=== PATIENT | female | born 1975 | race Two or more races ===

== ENCOUNTER 2017-02-04 17:03 | Inpatient (IN) | payer MEDICAID ==
[~2017-02-04] VITALS: Ht 154.9 cm; Wt 63.5 kg
[2017-02-04 18:49] LABS: UA SPECIFIC GRAVITY 1.025 (1.005-1.035); microscopic required? YES; urine erythrocyte 3+ (NEGATIVE)
[2017-02-04 18:51] LABS: BASOPHIL % 0.5 % (0-2)
[2017-02-04 18:54] LABS: CALCIUM 8.5 mg/dL (8.5-10.1); CARBON DIOXIDE 27.9 mmol/L (21-32); CHLORIDE SERUM 102 mmol/L (98-107); CREATININE SERUM 0.7 mg/dL (0.6-1.0); GFR1 > 60 mL/min; GLUCOSE SERUM 89 mg/dL (74-106); POTASSIUM SERUM 3.9 mmol/L (3.5-5.1); SODIUM SERUM 139 mmol/L (136-145)
[2017-02-04 18:58] LABS: ALKALINE PHOSPHATASE 64 U/L (46-116); ALT/SGPT 17 U/L (14-59); AMYLASE 69 U/L (25-115); AST/SGOT 13 U/L (15-37); BILIRUBIN TOTAL 0.13 mg/dL (0.20-1.00); LIPASE 288 IU/L (73-393); TOTAL PROTEIN, SERUM 7.1 g/dL (6.4-8.2)
[2017-02-04 19:01] LABS: ALBUMIN 3.3 g/dL (3.4-5.0)
[2017-02-04 19:20] LABS: PLATELET COUNT 433 x10^3mcL (130-400)
[2017-02-04 19:49] LABS: rbc morphology (normal/abnorm) ABNORMAL (NORMAL)
[2017-02-04 21:01] LABS: AMPHETAMINE QUAL UR NONE DETECTED (NEG <=1000)
[2017-02-04 21:10] LABS: T3 TOTAL 1.21 ng/mL
[2017-02-04 21:15] LABS: FREE T4 1.04 ng/dL (0.76-1.46); FREE THYROXINE INDEX 2.9 ug/dL (1.4-4.5); T4(THYROXINE) 8.3 ug/dL (4.7-13.3)
[2017-02-04 21:20] LABS: CHOLESTEROL/HDL RATIO 3.8; PHOSPHOROUS 4.2 mg/dL (2.5-4.9)
[2017-02-04 21:23] VITALS: BP 143/82
[2017-02-04 21:31] VITALS: BP 143/82
[2017-02-05 02:49] LABS: IRON 11 ug/dL (50-170); TOTAL IRON BINDING CAPACITY 563 ug/dL (250-450)
[2017-02-05 05:46] VITALS: BP 96/56
[2017-02-05 06:08] LABS: CALCIUM 8.6 mg/dL (8.5-10.1); CARBON DIOXIDE 28.4 mmol/L (21-32); CHLORIDE SERUM 102 mmol/L (98-107); CREATININE SERUM 0.6 mg/dL (0.6-1.0); GFR1 > 60 mL/min; GLUCOSE SERUM 103 mg/dL (74-106); SODIUM SERUM 135 mmol/L (136-145)
[2017-02-05 07:03] LABS: BASOPHIL % 0.7 % (0-2); RED BLOOD CELLS 3.47 M/mm3 (4.10-5.10)
[2017-02-05 07:19] LABS: PLATELET COUNT 411 x10^3mcL (130-400); RED CELL DISTRIBUTION WIDTH 17.7 % (11.5-14.5)
[2017-02-05 07:24] LABS: rbc morphology (normal/abnorm) ABNORMAL (NORMAL)
[2017-02-05 09:43] VITALS: BP 128/74
[2017-02-05 13:22] VITALS: BP 109/66
[2017-02-06 06:11] VITALS: BP 109/68
[2017-02-06 13:21] LABS: BASOPHIL % 0.4 % (0-2)
[2017-02-06 13:25] LABS: PLATELET COUNT 438 x10^3mcL (130-400)
[2017-02-06 13:26] LABS: CALCIUM 8.6 mg/dL (8.5-10.1); CARBON DIOXIDE 29.5 mmol/L (21-32); CHLORIDE SERUM 105 mmol/L (98-107); CREATININE SERUM 0.7 mg/dL (0.6-1.0); GFR1 > 60 mL/min; GLUCOSE SERUM 128 mg/dL (74-106); POTASSIUM SERUM 3.7 mmol/L (3.5-5.1); SODIUM SERUM 141 mmol/L (136-145); rbc morphology (normal/abnorm) ABNORMAL (NORMAL)
[2017-02-06 14:02] VITALS: BP 107/66
[2017-02-06 17:21] VITALS: BP 108/70; BP 111/69
[2017-02-06] MEDS ORDERED: FER300 PO (17:25)
[2017-02-06] MEDS ORDERED: VITC PO (17:26)
[2017-02-06 17:29] VITALS: BP 111/69
== END 2017-02-06 18:46 | disposition home or self-care (01) | DRG 532 ==
LOC: ED 17:03 → DU 19:36
PROVIDERS: Emergency Medicine; Family Medicine; ADMIT Family Medicine
DX: N93.8 Other specified abnormal uterine and vaginal bleeding (principal); N17.0 Acute kidney failure with tubular necrosis; D62 Acute posthemorrhagic anemia; E44.1 Mild protein-calorie malnutrition; E78.5 Hyperlipidemia, unspecified; E87.6 Hypokalemia; E66.3 Overweight; Z68.26 Body mass index [BMI] 26.0-26.9, adult
CPT/HCPCS: 83880; 84439; J2916; J3490; J7030; Q0092

== ENCOUNTER 2017-06-06 08:45 | Emergency (ER) | payer MEDICAID ==
[~2017-06-06 08:45] MED LIST: FER300 PO; VITC PO
[2017-06-06 10:42] VITALS: BP 138/78
== END 2017-06-06 10:42 | disposition home or self-care (01) ==
LOC: ED 08:45
DX: J06.9 Acute upper respiratory infection, unspecified (principal); J02.9 Acute pharyngitis, unspecified

== ENCOUNTER 2018-08-14 14:50 | Emergency (ER) | payer MEDICAID ==
[~2018-08-14] VITALS: Ht 154.9 cm; Wt 69.4 kg
[2018-08-14 14:55] VITALS: Ht 154.9 cm; Wt 69.4 kg
[2018-08-14 17:53] LABS: BASOPHIL % 0.5 % (0-2)
[2018-08-14 17:54] LABS: PLATELET COUNT 439 x10^3mcL (130-400); RED CELL DISTRIBUTION WIDTH 19.1 % (11.5-14.5)
[2018-08-14 20:19] VITALS: BP 126/94
== END 2018-08-14 19:24 | disposition home or self-care (01) ==
LOC: ED 14:50
PROVIDERS: Emergency Medicine
DX: N93.9 Abnormal uterine and vaginal bleeding, unspecified (principal); N83.202 Unspecified ovarian cyst, left side; D64.9 Anemia, unspecified
CPT/HCPCS: 36415; J1885; Q0092

== ENCOUNTER 2018-11-08 17:54 | Emergency (ER) | payer MEDICAID ==
[~2018-11-08] VITALS: Ht 154.9 cm; Wt 69.9 kg
[2018-11-08 18:25] VITALS: Ht 154.9 cm; Wt 69.9 kg
[2018-11-08 21:09] LABS: BASOPHIL % 0.5 % (0-2); PLATELET COUNT 275 x10^3mcL (130-400)
[2018-11-08 21:10] LABS: RED CELL DISTRIBUTION WIDTH 18.8 % (11.5-14.5)
[2018-11-08 21:17] LABS: CALCIUM 9.3 mg/dL (8.5-10.1); CARBON DIOXIDE 29.3 mmol/L (21-32); CHLORIDE SERUM 105 mmol/L (98-107); CREATININE SERUM 0.7 mg/dL (0.6-1.0); GFR1 > 60 mL/min; GLUCOSE SERUM 97 mg/dL (74-106); POTASSIUM SERUM 3.8 mmol/L (3.5-5.1); SODIUM SERUM 141 mmol/L (136-145)
[2018-11-08 21:22] LABS: ALKALINE PHOSPHATASE 60 U/L (46-116); ALT/SGPT 31 U/L (14-59); AST/SGOT 16 U/L (15-37); TOTAL PROTEIN, SERUM 6.6 g/dL (6.4-8.2)
[2018-11-08 21:25] LABS: ALBUMIN 3.1 g/dL (3.4-5.0)
[2018-11-08 21:49] VITALS: BP 123/66
[2018-11-08 21:53] LABS: BILIRUBIN TOTAL 0.1 mg/dL (0.20-1.00)
== END 2018-11-08 21:50 | disposition home or self-care (01) ==
LOC: ED 17:54
PROVIDERS: Emergency Medicine
DX: N92.0 Excessive and frequent menstruation with regular cycle (principal); D64.9 Anemia, unspecified; Z98.890 Other specified postprocedural states; Z98.51 Tubal ligation status
CPT/HCPCS: 36415

== ENCOUNTER 2019-06-27 08:42 | Emergency (ER) | payer MEDICAID ==
[~2019-06-27] VITALS: Ht 154.9 cm; Wt 68.0 kg
[2019-06-27 08:48] VITALS: BP 157/85; Ht 154.9 cm; Wt 68.0 kg
== END 2019-06-27 09:37 | disposition home or self-care (01) ==
LOC: ED 08:42
DX: J11.1 Influenza due to unidentified influenza virus with other respiratory manifestations (principal); Z98.51 Tubal ligation status
CPT/HCPCS: J1885